=== PATIENT | male | born 1970 | race Caucasian/White ===

== ENCOUNTER 2022-09-28 23:41 | Emergency (ER) | payer OTHER ==
[~2022-09-28] VITALS: Ht 172.7 cm; Wt 127.0 kg
[2022-09-28 23:52] VITALS: BP_SYST 128; PULSE 98; RESP 18; TEMP 98.2; O2SAT 98
--- NOTE | 2022-09-28 23:54 | NUR ---
Placed in room 03 . Placed on environmental lead, blood pressure machine and pulse oximeter. To gown for exam. Side rails up. Report given to WALTER SERRANO
--- NOTE | 2022-09-29 00:04 | NUR ---
FIRST CONTACT WITH PT. ASSESSMENT COMPLETED. MD BILLS ALSO AT BEDSIDE FOR EVAL AND ORDERS.
[2022-09-29 00:13] LABS: BASOPHILS % (AUTO) 0.2 % (0.0-2.0); EOSINOPHILS % (AUTO) 0.1 % (0.0-4.0); HEMATOCRIT 42.6 % (36-54); HEMOGLOBIN 14.9 g/dL (14.0-18.0); LYMPHOCYTES # (AUTO) 0.8 K/uL (1.0-5.5); LYMPHOCYTES % (AUTO) 8.2 % (20.5-51.5); MEAN CORPUSCULAR HEMOGLOBIN 32 pg (27-31); MEAN CORPUSCULAR HGB CONC 35 % (32-36); MEAN CORPUSCULAR VOLUME 91 fL (79.0-98.0); MONOCYTES # (AUTO) 0.2 K/uL (0.0-1.0); MONOCYTES % (AUTO) 1.6 % (1.7-9.3); NEUTROPHILS # (AUTO) 9.1 K/uL (1.8-7.7); NEUTROPHILS % (AUTO) 89.9 % (40.0-70.0); PLATELET COUNT (AUTO) 150 K/uL (130-430); RED BLOOD CELL COUNT(AUTO) 4.67 MIL/uL (4.2-6.2); RED CELL DISTRIBUTION WIDTH 13.5 % (9.0-15.0); WHITE BLOOD COUNT (AUTO) 10.1 K/uL (4.8-10.8)
[2022-09-29] MEDS ORDERED: MORPHINE 4 MG INJ. 4 MG/ML VIAL IVP ONE ×2 (00:15→01:45)
[2022-09-29] MEDS ORDERED: ONDANSETRON HCL 4 MG/2 ML VIAL IVP ONE (00:15)
[2022-09-29 00:28] LABS: CALCIUM 8.9 mg/dL (8.4-11.0); CREATININE 1.95 mg/dL (0.55-1.30)
[2022-09-29 00:32] LABS: ALBUMIN 4.1 g/dL (3.4-4.8); TOTAL BILIRUBIN 0.8 mg/dL (0.0-1.0)
[2022-09-29] MEDS ORDERED: NACL 0.9% 1,000 ML IV ONE ×2 (01:00→02:30)
--- NOTE | 2022-09-29 01:34 | NUR ---
pt to radiology via roam
[2022-09-29] MEDS ORDERED: MORPHINE 4 MG INJ. 4 MG/ML VIAL ONE (01:49)
[2022-09-29] MEDS ORDERED: PANTOPRAZOLE SODIUM 40 MG/VIAL (PROTONIX) IVP ONE (02:30)
[2022-09-29] MEDS ORDERED: HYDROmorphone 1 MG/ML INJ. CARTRIDGE IVP ONE (02:30)
--- NOTE | 2022-09-29 03:12 | NUR ---
PT CURRENTLY RESTING QUIETLY AFTER LAST ROUND OF MEDS.
[2022-09-29 03:42] LABS: BILIRUBIN,URINE NEGATIVE (NEGATIVE); CLARITY/URINE CLEAR (CLEAR); COLOR,URINE YELLOW (YELLOW); GLUCOSE,URINE 3+ (NEGATIVE); KETONES,URINE TRACE (NEGATIVE); LEUKOCYTE ESTERASE ,URINE NEGATIVE (NEGATIVE); NITRITE, URINE NEGATIVE (NEGATIVE); PROTEIN URINE NEGATIVE (NEGATIVE); UROBILINOGEN,URINE 0.2 (0.2-1.0)
[2022-09-29 03:47] LABS: BLOOD, URINE TRACE (NEGATIVE)
[2022-09-29 03:55] LABS: BACTERIA,URINE RARE /HPF (None Seen)
--- NOTE | 2022-09-29 05:00 | NUR ---
PT RESTING WITH NO SIGNS OF DISTRESS. AWAITING DISPO
--- NOTE | 2022-09-29 06:10 | NUR ---
DR BILLS AT BEDSIDE TO DISCUSS FINDINGS AND TELL PT HE WAS AWAITING CT RESULTS BEFORE DISPO.
--- NOTE | 2022-09-29 07:30 | NUR ---
RECEIVED PT FROM WALTER SERRANO. ASSUMED CARE. PT IS [id number], ON R/A. NPO AT THIS TIME DUE TO ABDOMINAL PAIN, CONTROLLED AT THIS TIME BY PAIN MEDICATION. DISTAL PULSES NORMAL, SKIN CDI. VSS, SIDERAILS UP X2.
--- NOTE | 2022-09-29 08:20 | NUR ---
DR. PHAN AT BEDSIDE TO DISCUSS POC.
[2022-09-29] MEDS ORDERED: IBUP-1971 PO (08:22)
[2022-09-29] MEDS ORDERED: HYDR-3927 PO (08:22)
--- NOTE | 2022-09-29 09:25 | NUR ---
Patient given written and verbal discharge instructions and verbalizes understanding. ER MD discussed with patient the results and treatment provided. Patient in stable condition. ID arm band removed. IV catheter removed intact and dressing applied, no active bleeding. Rx of NORCO, MOTRIN given. Patient educated on pain management and to follow up with PMD. Pain Scale 0/10. Opportunity for questions provided and answered. Medication side effect fact sheet provided.
[2022-09-29 09:26] VITALS: BP_SYST 135; PULSE 84; RESP 18; TEMP 97.1; O2SAT 98
== END 2022-09-29 09:25 | disposition home or self-care (01) ==
LOC: SED 23:41
DX: R10.11 Right upper quadrant pain (principal); R10.12 Left upper quadrant pain; Z79.899 Other long term (current) drug therapy
CPT/HCPCS: 99285; 96374; 96375; 96361; 80053; 81000; 83690; 85025; 36415; 96376; 74175; 72191; 76376; J7030; J2405; C9113; J1170; J2270; Q9967